=== PATIENT | female | born 1935 | race Caucasian/White ===

== ENCOUNTER → 2016-04-29 | Day surgery (SDC) | payer OTHER, MEDICARE ==
[~2016-04-29] VITALS: Ht 167.6 cm; Wt 67.1 kg
[~2016-04-29] MED LIST: COZAAR50 M1 PO; DAILY MULTIPLE1 EACH PO; FOSAMAX70 M1 PO; LIPITOR10 M1 PO; OS-CAL 500+D31 EAC1 PO; SYNTHROID150 MCG PO; VITAMIN C500 M6 PO
--- NOTE | 2016-04-29 10:20 | Operative Report ---
Operative/Inv Procedure Report Surgery Date: 04/29/16 Name of Procedure: Left carpal tunnel release Pre-Operative Diagnosis: Left carpal tunnel syndrome Post-Operative Diagnosis: Left carpal tunnel syndrome Estimated Blood Loss: scant Surgeon/Compressed Yeast Supervisor: ARABELLA SAM MD Anesthesia: laryngeal mask airway Complications: None Condition: Stable to PACU Operative Indication: This is an 80-year-old female with long-standing left carpal tunnel syndrome. Risks and benefits of the procedure were discussed with the patient at length. Risks include but are not limited to nerve damage, muscle damage, infection, blood loss, blood clots, pulmonary embolus, and even . The patient agreed to the above risks and elected to proceed with surgery. Operative/Procedure Note Note: The patient was taken to the operating room and placed supine on the operating room table. A tourniquet was applied to the arm above the elbow. The upper extremity was prepped and draped in the normal sterile fashion. The patient received IV antibiotics prior to incision. A time out was performed and the site marking was also visualized prior to incision. An Esmarch was used to exsanguinate the extremity. The tourniquet was inflated. An incision was made extending from the distal wrist crease starting overlying the palmaris longest tendon in line with the fourth ray. This extended 2.5 cm. Care was taken not to cross Renee's cardinal line. Fat was also reflected at this time and the palmar fascia was incised. Next the transverse carpal ligament was incised. A Minetto elevator was inserted deep to the ligament to protect the contents of the carpal tunnel. A knife was then used to release the ligament further distally. Next scissors were used to extend the release distally until the palmar fat was approached, taking care to protect the superficial palmar arch. The transverse carpal ligament was then incised proximally. The volar forearm fascia was released. Once the release was complete the wound was copiously irrigated. The incision was closed with 3-0 nylon suture in a simple interrupted fashion. 0.25% Marcaine was then injected to anesthetize the wound. A dry sterile dressing was applied and the patient was transferred to PACU in stable condition.
== END ==
LOC: STS 04-28 23:01
DX: G56.03 Carpal tunnel syndrome, bilateral upper limbs (principal); I10 Essential (primary) hypertension; E78.5 Hyperlipidemia, unspecified; E03.9 Hypothyroidism, unspecified
CPT/HCPCS: J0690; J2250